=== PATIENT | female | born 2000 | race Caucasian/White ===

== ENCOUNTER 2024-06-07 10:19 | Emergency (ER) | payer OTHER, SELFPAY ==
[2024-06-07 10:19] VITALS: BP 144/87; PULSE 87; RESP 17; TEMP 36.7; O2SAT 99
--- NOTE | 2024-06-07 10:23 | ED.GENADULT ---
HPI - General Adult General Chief complaint: Extremity Problem,Nontraumatic Stated complaint: left heal pain Time Seen by Provider: 06/07/24 10:23 Source: patient Mode of arrival: ambulatory Limitations: no limitations History of Present Illness HPI narrative: 23-year-old white female complains of left heel pain started 4 days ago. It is worse the 1st couple steps of the day. On the bottom of her foot and heel. She has been taking ibuprofen with some relief. She has a history of 2 knee surgeries on the left and has had some knee pain when she stands up which is old. Denies any fever cough runny nose sore throat difficulty breathing rash or itching swelling lumps or bumps other problems walking talking seeing or hearing voiding or stooling or any other complaints. Related Data Home Medications ?Medication ?Instructions ?Recorded ?Confirmed ?Last Taken ?Type No Home Medications 06/07/24 06/07/24 Unknown History Allergies Allergy/AdvReac Type Severity Reaction Status Date / Time prochlorperazine (From Allergy Severe Anaphylaxis Verified 06/07/24 10:21 Compazine) diphenhydramine (From AdvReac Severe Other Verified 06/07/24 10:21 Benadryl) Review of Systems Review of Systems: All systems reviewed & are unremarkable except as noted in HPI and below Exam Narrative: White female patient with no apparent distress.? Head normocephalic, atraumatic.? Eyes conjunctiva pink sclera nonicteric.? Extraocular movements are intact.? ? Extremities no cyanosis clubbing or edema . Left foot has full range of motion she has tenderness over the plantar fascia at the insertion points of her heel. She has full range of motion of her foot and ankle and knee. No swelling or discoloration DP and PT pulses are +2 her left foot. Left knee exam was stable to all forces full range of motion negative Yuriy's negative or normal anterior and posterior drawer test..? Skin is warm and dry without rashes or lesions.? Neurological patient is alert and oriented x4.? Motor and sensory grossly intact.? Gait is normal. Course Vital Signs Vital signs: Vital Signs Temperature 36.7 C 06/07/24 10:19 Pulse Rate 87 06/07/24 10:19 Respiratory Rate 17 06/07/24 10:19 Blood Pressure 144/87 H 06/07/24 10:19 Pulse Oximetry 99 06/07/24 10:19 Oxygen Delivery Room Air 06/07/24 10:19 Temperature 36.7 C 06/07/24 10:19 Pulse Rate 87 06/07/24 10:19 Respiratory Rate 17 06/07/24 10:19 Blood Pressure 144/87 H 06/07/24 10:19 Pulse Oximetry 99 06/07/24 10:19 Oxygen Delivery Room Air 06/07/24 10:19 Medical Decision Making MDM Narrative Medical decision making narrative: Patient placed in room: Three ? History and physical was performed. Independent Historian: patient External Source Review: Differential Dx includes but not limited to: plantar fasciitis heel spur Medications were Reviewed: home meds reviewed Medications given: patient was instructed heel calf stretches against the wall Independently Interpreted by me: Shared decision Making: evaluation was discussed with the patient all questions were asked and answered patient agreed with the plan. She would use ibuprofen 200 mg 3 tabs 3 times a day with Tylenol fracture pain relief if needed calf stretching exercises and ice massage to her foot as needed she would follow up with orthopedist or flight service specialist for further evaluation treatment. Social Situation Impacting Patients Care: Discussed with Dr. AGEE DIAGNOSIS: Left foot plantar fasciitis DISPOSITION : discharge home CONDITION AT DISCHARGE: stable Vital Signs Vital Signs: Vital Signs Temperature 36.7 C 06/07/24 10:19 Pulse Rate 87 06/07/24 10:19 Respiratory Rate 17 06/07/24 10:19 Blood Pressure 144/87 H 06/07/24 10:19 Pulse Oximetry 99 06/07/24 10:19 Oxygen Delivery Room Air 06/07/24 10:19 Temperature 36.7 C 06/07/24 10:19 Pulse Rate 87 06/07/24 10:19 Respiratory Rate 17 06/07/24 10:19 Blood Pressure 144/87 H 06/07/24 10:19 Pulse Oximetry 99 06/07/24 10:19 Oxygen Delivery Room Air 06/07/24 10:19 Discharge Plan Discharge Clinical Impression: Plantar fasciitis of left foot Patient Disposition: Home, Self-Care Condition: Stable Instructions: Plantar Fasciitis (ED), Plantar Fasciitis Exercises (ED) Additional Instructions: ibuprofen: 2 or 3 tablets 3 times a day with food. Take Tylenol as needed for extra pain relief. To plantar fasciitis exercises. Ice massage to the foot as needed. Follow-up with flight service specialist or orthopedist for further evaluation treatment. Patient Language: Japanese Prescriptions: No Action No Home Medications Follow-up/Referrals: UNKNOWN,DOCTOR [Primary Care Provider] - Time of Disposition: 10:45
[2024-06-07 11:03] VITALS: BP 144/87; PULSE 87; RESP 17; TEMP 36.7; O2SAT 99
== END 2024-06-07 11:04 | disposition home or self-care (01) ==
LOC: CHSED 10:53
PROVIDERS: Emergency Provider Emergency Medicine
DX: M72.2 Plantar fascial fibromatosis (principal); M79.672 Pain in left foot
CPT/HCPCS: 99281

== ENCOUNTER 2025-03-31 14:33 | Emergency (ER) | payer OTHER, SELFPAY ==
[2025-03-31 14:35] VITALS: BP 136/86; PULSE 100; RESP 16; TEMP 37; O2SAT 100
--- NOTE | 2025-03-31 14:48 | ED.GENADULT ---
HPI - General Adult General Chief complaint: Abdominal Pain Stated complaint: abdominal pain Time Seen by Provider: 03/31/25 14:36 Source: patient Mode of arrival: ambulatory Limitations: no limitations History of Present Illness HPI narrative: The patient is a 24-year-old woman who is otherwise healthy, with history of asthma, ADHD, who has 1 previous , last menstrual period 02/28/2025. She is currently , and noted to be 2 days ago, 03/29/2025. The patient has had a 5 day history of left flank discomfort, radiating to the left lower quadrant, dull pain for the majority of times but occasionally stabbing, not subsiding for the last 5 days, constantly present, waxing waning in intensity, not radiating elsewhere. There is associated nausea but no emesis or diarrhea. She has been drinking water more than usual since finding out she is . She does have associated urinary frequency and urgency but no dysuria or hematuria. There is no back pain or right-sided abdominal pain or chest pain. No URI symptoms such as cough rhinorrhea or nasal congestion. No fevers or chills or diaphoresis. No vaginal bleeding. Related Data Allergies Allergy/AdvReac Type Severity Reaction Status Date / Time prochlorperazine (From Allergy Severe Anaphylaxis Verified 03/31/25 14:36 Compazine) diphenhydramine (From AdvReac Severe Other Verified 03/31/25 14:36 Benadryl) Review of Systems Review of Systems: All systems reviewed & are unremarkable except as noted in HPI and below Constitutional: Constitutional: Denies chills, Denies excessive sweating, Denies fatigue, Denies fever(s), Denies headache(s) and Denies weakness Eyes: Eyes: Denies change in vision and Denies photophobia ENT: Denies dysphagia, Denies dizziness, Denies headache(s), Denies lip swelling, Denies nasal congestion, Denies sore throat and Denies tongue swelling Cardiovascular: Cardiovascular: Denies chest pain, Denies syncope, Denies rapid heart rate and Denies dyspnea Respiratory: Respiratory: Denies cough, Denies dyspnea and Denies wheezing Gastrointestinal: Gastrointestinal: Reports abdominal pain (left flank), Denies constipation, Denies dysphagia, Denies diarrhea, Reports nausea and Denies vomiting Genitourinary: Genitourinary: Denies hematuria, Denies dysuria, Reports flank pain (left) and Reports urinary urgency Comments: also with urinary frequecy Musculoskeletal: Musculoskeletal: Denies back pain, Denies myalgias, Denies arthralgias, Denies joint swelling and Denies numbness Integumentary/Breasts: Skin/Breast: Denies pruritus, Denies erythema and Denies rash Neurologic: Denies confusion, Denies dizziness, Denies syncope, Denies headache(s), Denies focal weakness, Denies numbness and Denies weakness Psychiatric: Psychiatric: Denies anxiety and Denies confusion Endocrine: Endocrine: Denies excessive sweating and Denies fatigue Hematologic/Lymphatic: Hematologic/Lymphatic: Denies easy bleeding and Denies easy bruising Allergic/Immunologic: Allergic/Immunologic: Denies lip swelling, Denies tongue swelling and Denies wheezing Exam Const: General: healthy appearing, no acute distress, alert and well nourished Nutritional Appearance: well nourished Orientation/consciousness: patient oriented x3 Limitations: no limitations HENMT: Head: normal to inspection Ears: external ears normal Face/Nose/Sinus: normal facial exam Face and sinus: normal facial exam Mouth: Yes moist mucous membranes Throat: posterior oropharynx normal Eyes: Conjunctivae: conjunctivae normal Pupils: Equal, round and reactive pupils present EOM: EOMs intact bilaterally Neck: Neck: normal visual inspection and no meningeal signs Chest: Chest palpation & inspection: normal inspection of the chest and no tenderness Resp: Effort & Inspection: normal respiratory effort and not labored Auscultation: clear to auscultation bilaterally, no crackles, no rhonchi and no wheezes Cardio: Rate: regular rate Rhythm: regular rhythm Heart sounds: no murmurs GI: Inspection: non-distended GI Palp: Yes Soft to palpation, Yes Tenderness to palpation present (GI) (mild left flank tenderness, no peritoneal signs. ), No Guarding due to palpation present (GI) and No Rebound tenderness present Other: no abdominal distention. no tympany. : General: Yes no CVA tenderness Back/Spine/Pelvis: Back: no CVA tenderness Cervical Spine: No Cervical spine tenderness Thoracic/Lumbar Spine: No thoracic spinal tenderness Skin: General skin exam: normal color Rashes: no rashes Wounds: no wounds Neuro: General: patient oriented x3, moves all extremities, no meningeal signs, no focal motor deficits and CN's II-XI intact bilaterally Cranial nerves: Yes Equal, round and reactive pupils present Speech: normal speech Motor exam (neuro): 5/5 motor strength present throughout Sensory Exam: normal sensation Extrem: General: normal to inspection and no clubbing, cyanosis or edema Psych: Mental Status: mental status grossly normal Affect: normal affect Course Course Emergency Course: 24-year-old woman with left flank discomfort, for the last 5 days, with associated nausea, noted to be 2 days ago, , last menstrual period 02/28/2025. We will pursue a workup including ABO type and quantitative HCG. We do not have ultrasound capability at the present time. 15:30: The white blood cell count is normal, hemoglobin 13, hematocrit 38.6, platelets 368, all acceptable. CMP pending. Urinalysis is negative. No evidence of UTI. Quantitative hCG is pending. Blood type is pending. 15:52: Blood type is A positive. Quantitative hCG is 414. CMP is unremarkable including amylase lipase and LFTs. Urine toxicology and alcohol is negative. Will discharge home on vitamins and Zofran as needed for nausea. She will follow-up with her OB provider the next few days. She is agreeable with the plan. No strong indication for transfer for a ultrasound at this time. Tylenol as needed for pain. All questions answered. Vital Signs Vital signs: Vital Signs Temperature 37.0 C 03/31/25 14:35 Pulse Rate 100 03/31/25 14:35 Respiratory Rate 16 03/31/25 14:35 Blood Pressure 136/86 03/31/25 14:35 Pulse Oximetry 100 03/31/25 14:35 Oxygen Delivery Room Air 03/31/25 14:35 Temperature 37.0 C 03/31/25 14:35 Pulse Rate 75 03/31/25 16:05 Respiratory Rate 16 03/31/25 16:05 Blood Pressure 113/57 L 03/31/25 16:05 Pulse Oximetry 100 03/31/25 16:05 Oxygen Delivery Room Air 03/31/25 16:05 Medical Decision Making Vital Signs Vital Signs: Vital Signs Temperature 37.0 C 03/31/25 14:35 Pulse Rate 100 03/31/25 14:35 Respiratory Rate 16 03/31/25 14:35 Blood Pressure 136/86 03/31/25 14:35 Pulse Oximetry 100 03/31/25 14:35 Oxygen Delivery Room Air 03/31/25 14:35 Temperature 37.0 C 03/31/25 14:35 Pulse Rate 75 03/31/25 16:05 Respiratory Rate 16 03/31/25 16:05 Blood Pressure 113/57 L 03/31/25 16:05 Pulse Oximetry 100 03/31/25 16:05 Oxygen Delivery Room Air 03/31/25 16:05 Lab Data 03/31/25 15:07 03/31/25 15:07 Labs: Lab Results 03/31/25 03/31/25 Range/Units 14:58 15:07 WBC 10.0 (4.8-10.8) K/mm3 RBC 4.58 (4.20-5.40) M/mm3 Hgb 13.0 (12.0-15.0) g/dL Hct 38.6 (35.0-49.0) % MCV 84.3 (78.0-102.0) fL MCH 28.4 (27.0-31.0) pg MCHC 33.7 (32-36) g/dL RDW 11.9 (11.6-14.4) % Plt Count 368 (150-420) K/mm3 MPV 9.4 (9.2-11.8) fl Immature Gran % (Auto) 0.3 H (0.0-0.0) % Neut % (Auto) 72.1 H (50.0-70.0) % Lymph % (Auto) 22.5 (18.0-42.0) % [place] % (Auto) 3.7 (2.0-11.0) % Eos % (Auto) 0.8 L (1.0-6.0) % Baso % (Auto) 0.6 (0.0-1.0) % Lymph # (Auto) 2.25 (1.10-4.50) K/mm3 [place] # (Auto) 0.37 (0.10-0.90) K/mm3 Eos # (Auto) 0.08 (0.02-0.50) K/mm3 Baso # (Auto) 0.06 (0.00-0.10) K/mm3 Abs Immat Gran (auto) 0.03 H (0.00-0.00) K/mm3 Absolute Neuts (auto) 7.20 (1.70-7.20) K/mm3 Absolute Nucleated RBC 0.00 (0.00-0.00) K/mm3 Nucleated RBC % 0.0 (0-0.0) % Sodium 139 (137-145) mmol/L Potassium 3.8 (3.4-5.0) mmol/L Chloride 105 (98-107) mmol/L Carbon Dioxide 22 (22-30) mmol/L Anion Gap 12 (4-12) mmol/L BUN 9 (7-17) mg/dL Creatinine 0.91 (0.7-1.0) mg/dL Estim Creat Clear Calc 89 ml/min Estimated GFR > 60 (59 - ) Glucose 115 H (65-110) mg/dL Calculated Osmolality 287 (285-295) mOsm/kg Calcium 9.5 (8.4-10.2) mg/dL Total Bilirubin 0.5 (0.2-1.3) mg/dL AST 25 (14-36) U/L ALT 21 (6-35) U/L Alkaline Phosphatase 47 (38-126) U/L Total Protein 8.4 H (6.3-8.2) g/dL Albumin 4.5 (3.5-5.1) g/dL Amylase 64 (30-110) U/L Lipase 85 (23-300) U/L Beta HCG, Quant 414.13 mIU/ML Urine Color Yellow (Yellow) Urine Appearance Clear (Clear) Urine pH 6.0 (5.0-8.0) Ur Specific [place] <= 1.005 L (1.010-1.020) Urine Protein Negative (Negative) Urine Glucose (UA) Negative (Negative) Urine Ketones Negative (Negative) Ur Blood (Man) Negative (Negative) Urine Nitrate Negative (Negative) Urine Bilirubin Negative (Negative) Urine Urobilinogen 0.2 (0.2-1.0) mg/dL Leukocyte Esterase Rfl Negative (Negative) ANDREY/UL Urine Opiates Screen Negative (Negative) Urine Methadone Screen Negative (Negative) Ur Barbiturates Screen Negative (Negative) Ur Phencyclidine Scrn Negative (Negative) Ur Amphetamine Screen Negative (Negative) U Benzodiazepines Scrn Negative (Negative) Urine Cocaine Screen Negative (Negative) U Cannabinoids Screen Negative (Negative) Ethyl Alcohol < 10 (<10) mg/dL Blood Type A Positive Discharge Plan Discharge Clinical Impression: Abdominal pain affecting , antepartum, related nausea, antepartum Patient Disposition: Home Condition: Stable Instructions: Abdominal Pain in (ED) Additional Instructions: Your nausea during will be treated with Zofran as needed under the tongue Tylenol as needed for pain in the flank, as much as 1000 mg per dose as often as 4 times a day Your quantitative hCG level is 414 today. This is consistent with an early . An abdominal ultrasound at this time would likely reveal no major findings since the is quite early. Follow-up with your OB provider or primary care provider for further management of your Start vitamins once daily Return if worse Patient Language: Slovenian Prescriptions: New ondansetron 8 mg tablet,disintegrating 8 mg PO Q8H PRN (Reason: nausea and vomiting) Qty: 20 0RF PNV [id number] 90 mg iron- 1 mg-200 mg capsule 1 cap PO DAILY Qty: 90 4RF Follow-up/Referrals: UNKNOWN,DOCTOR [Non-Staff] - 2 Weeks Referral Note: Left flank discomfort with , blood in urine testing unremarkable. Zofran for nausea. A quantitative HCG 414. For follow-up. Blood type A positive. Clinical Impression: related nausea, antepartum; Abdominal pain affecting , antepartum Time of Disposition: 16:02
[2025-03-31 15:16] LABS: Hematocrit 38.6 % (35.0-49.0); Hemoglobin 13.0 g/dL (12.0-15.0); Immature Granulocyte Percent A 0.3 % (0.0-0.0); Lymphocytes Absolute Auto 2.25 K/mm3 (1.10-4.50); Mean Corpuscular HGB Conc 33.7 g/dL (32-36); Mean Corpuscular Hemoglobin 28.4 pg (27.0-31.0); Mean Corpuscular Volume 84.3 fL (78.0-102.0); Nucleated Red Blood Cells Absolute Auto 0.00 K/mm3 (0.00-0.00); Nucleated Red Blood Cells Perc 0.0 % (0-0.0); Platelet Count Result 368 K/mm3 (150-420); Red Blood Count 4.58 M/mm3 (4.20-5.40); White Blood Count 10.0 K/mm3 (4.8-10.8)
[2025-03-31 15:17] LABS: Add Urine Microscopic? NO; Appearance Urine Clear (Clear); Glucose Urine UA Negative (Negative); Leukocyte Esterase Ur Negative LEU/UL (Negative); Nitrate Urine Negative (Negative); Specific Grav Ur <= 1.005 (1.010-1.020)
[2025-03-31 15:27] LABS: Alanine Aminotransferase 21 U/L (6-35); Albumin Level 4.5 g/dL (3.5-5.1); Alkaline Phosphatase 47 U/L (38-126); Amylase 64 U/L (30-110); Anion Gap 12 mmol/L (4-12); Aspartate Amino Transferase 25 U/L (14-36); Bilirubin,Total 0.5 mg/dL (0.2-1.3); Blood Urea Nitrogen 9 mg/dL (7-17); Calcium 9.5 mg/dL (8.4-10.2); Carbon Dioxide 22 mmol/L (22-30); Chloride 105 mmol/L (98-107); Estimated CRCL calculation 89 ml/min; Estimated Glomerular Filt Rate > 60; Glucose 115 mg/dL (65-110); Lipase 85 U/L (23-300); Osmolality Calculated 287 mOsm/kg (285-295); Potassium 3.8 mmol/L (3.4-5.0); Sodium 139 mmol/L (137-145); Total Protein 8.4 g/dL (6.3-8.2)
[2025-03-31 15:36] LABS: Cannabinoid Screen Urine Negative (Negative)
[2025-03-31 15:48] LABS: Beta HCG Quantitative 414.13 mIU/ML
[2025-03-31 16:05] VITALS: BP 113/57; PULSE 75; RESP 16; O2SAT 100
== END 2025-03-31 16:05 | disposition home or self-care (01) ==
PROVIDERS: Emergency Provider Emergency Medicine
DX: O26.899 Other specified pregnancy related conditions, unspecified trimester (principal); R10.9 Unspecified abdominal pain; R11.0 Nausea; Z3A.00 Weeks of gestation of pregnancy not specified
CPT/HCPCS: 36415; 80053; 80307; 81003; 82077; 82150; 83690; 84702; 85025; 86900; 86901; 99283